=== PATIENT | male | born 1975 | race Hispanic/Latino ===

== ENCOUNTER 2020-07-20 12:35 | Inpatient (IN) | payer OTHER ==
[~2020-07-20] VITALS: Ht 175.3 cm; Wt 99.9 kg
[2020-07-20 12:41] LABS: ABG BASE EXCESS 0.2 mmol/L (-2.0-3.0); ABG HCO3 22.9 mmol/L (21.0-28.0); ABG PCO2 32 mmHg (35-48)
[2020-07-20 12:50] LABS: BASOPHILS % (AUTO) 0.3 % (0.0-5.0); HEMATOCRIT 42.7 % (42-54); LYMPHOCYTES % (AUTO) 25.4 % (21.0-51.0); MEAN CORPUSCULAR HGB CONC 35.6 g/dL (32.0-36.0); MEAN CORPUSCULAR VOLUME 95.5 fL (79-99); MONOCYTES % (AUTO) 9.1 % (3.0-13.0); NEUTROPHILS % (AUTO) 64.9 % (40.0-77.0); PLATELET COUNT (AUTO) 234 K/uL (130-400); RED BLOOD CELL COUNT(AUTO) 4.47 MIL/uL (4.50-6.20); RED CELL DISTRIBUTION WIDTH 11.9 % (11.0-15.5); WHITE BLOOD COUNT (AUTO) 7.2 K/uL (4.8-10.8)
[2020-07-20 13:00] LABS: CREATININE 1.2 mg/dL (0.5-1.5); POTASSIUM 3.8 mmol/L (3.5-5.1)
[2020-07-20 13:09] LABS: ALBUMIN 2.9 g/dL (3.5-5.0); BILIRUBIN,TOTAL 0.8 mg/dL (0.2-1.0); TOTAL PROTEIN, SERUM 7.7 g/dL (6.0-8.3)
[2020-07-20] MEDS ORDERED: CEFTRIAXONE SODIUM 2 GM VIAL ONE (13:11)
[2020-07-20] MEDS ORDERED: DEXAMETHASONE SOD PHOSPHATE 10MG/ML 1ML VIAL ONE (13:11)
[2020-07-20] MEDS ORDERED: ACETAMINOPHEN EXTRA STRENGTH 500 MG TABLET ONE (13:28)
[2020-07-20] MEDS ORDERED: THIAMINE HCL 100 MG/ML 2ML VIAL IVP SCH (17:15)
[2020-07-20] MEDS ORDERED: ERGOCALCIFEROL (VITAMIN D2) 50,000 UNIT CAPSULE PO ONE (17:15)
[2020-07-20] MEDS ORDERED: LORAZEPAM 2 MG/ML 1 ML VIAL IVP PRN (17:15)
[2020-07-20] MEDS ORDERED: PHARMACY COMMUNICATION MISC PRN (17:15)
[2020-07-20] MEDS ORDERED: Vitamin B Complex/Vit C/Folic Acid PO SCH (17:15)
[2020-07-20] MEDS ORDERED: CHLORDIAZEPOXIDE HCL 25 MG CAP PO PRN (17:15)
[2020-07-20] MEDS ORDERED: COMPOUND IV MISC 1 EACH IVSOLN MISC PRN (17:45)
[2020-07-20 17:47] LABS: ALCOHOL, BLOOD < 3 mg/dL (0-10); CREATINE KINASE, TOTAL 38 U/L (21-232)
[2020-07-20] MEDS: LEVETIRACETAM 500 MG in SODIUM CHLORIDE 0.9% 100 ML IV SCH (19:00)
[2020-07-20] MEDS ORDERED: Vitamin B Complex/Vit C/Folic Acid ONE (19:08)
[2020-07-20] MEDS ORDERED: ERGOCALCIFEROL (VITAMIN D2) 50,000 UNIT CAPSULE ONE (19:08)
[2020-07-20] MEDS ORDERED: DOXYCYCLINE HYCLATE 100 MG TABLET PO ONE (19:08)
[2020-07-20] MEDS ORDERED: THIAMINE HCL 100 MG/ML 2ML VIAL ONE (19:09)
[2020-07-20] MEDS ORDERED: ENOXAPARIN SODIUM 40 MG/0.4 ML SYRINGE SQ ONE (19:09)
[2020-07-20 19:28] LABS: HEMOGLOBIN A1C 6.5 % (4.0-6.0)
[2020-07-20] MEDS ORDERED: LEVETIRACETAM 500 MG/5 ML SD VIAL IV ONE (19:31)
[2020-07-20] MEDS ORDERED: SODIUM CHLORIDE 0.9% 100 ML IV ONE (19:33)
[2020-07-20] MEDS: ENOXAPARIN SODIUM 40 MG/0.4 ML SYRINGE SQ SCH (21:00)
[2020-07-20] MEDS: INSULIN HUMULIN R 100 UNIT/ML 3ML SQ SCH (21:00)
[2020-07-20] MEDS: DOXYCYCLINE HYCLATE 100 MG TABLET PO SCH (21:00)
[2020-07-21 03:37] LABS: HEMATOCRIT 40.3 % (42-54); LYMPHOCYTES % (AUTO) 7.3 % (21.0-51.0); MEAN CORPUSCULAR HEMOGLOBIN 33.7 pg (27.0-33.0); MEAN CORPUSCULAR HGB CONC 34.5 g/dL (32.0-36.0); MEAN CORPUSCULAR VOLUME 97.6 fL (79-99); MONOCYTES % (AUTO) 5.4 % (3.0-13.0); NEUTROPHILS % (AUTO) 86.8 % (40.0-77.0); PLATELET COUNT (AUTO) 233 K/uL (130-400); RED BLOOD CELL COUNT(AUTO) 4.13 MIL/uL (4.50-6.20); WHITE BLOOD COUNT (AUTO) 8.7 K/uL (4.8-10.8)
[2020-07-21 03:54] LABS: ALBUMIN 2.7 g/dL (3.5-5.0); BILIRUBIN,TOTAL 0.4 mg/dL (0.2-1.0); CRP QUANTITATIVE 152.1 mg/L (0.00-9.0); POTASSIUM 3.7 mmol/L (3.5-5.1); TOTAL PROTEIN, SERUM 7.4 g/dL (6.0-8.3)
[2020-07-21] MEDS: LEVETIRACETAM 500 MG in SODIUM CHLORIDE 0.9% 100 ML IV SCH ×2 (07:00→21:40)
[2020-07-21] MEDS: INSULIN HUMULIN R 100 UNIT/ML 3ML SQ SCH ×4 (07:30→21:00)
[2020-07-21] MEDS ORDERED: SODIUM CHLORIDE 0.9% 100 ML IV ONE ×3 (07:43→09:10)
[2020-07-21] MEDS: THIAMINE HCL 100 MG/ML 2ML VIAL IVP SCH (09:00)
[2020-07-21] MEDS: CEFTRIAXONE SODIUM 1 GM IVP SCH ×2 (09:00→22:01)
[2020-07-21] MEDS: ZINC SULFATE 220 CAPSULE PO SCH (09:00)
[2020-07-21] MEDS: ASCORBIC ACID 500 MG TAB PO SCH (09:00)
[2020-07-21] MEDS: ENOXAPARIN SODIUM 40 MG/0.4 ML SYRINGE SQ SCH ×2 (09:00→22:02)
[2020-07-21] MEDS: DOXYCYCLINE HYCLATE 100 MG TABLET PO SCH ×2 (09:00→22:01)
[2020-07-21] MEDS: Vitamin B Complex/Vit C/Folic Acid PO SCH (09:00)
[2020-07-21] MEDS: DEXAMETHASONE SOD PHOSPHATE 4 MG/ML 1ML VIAL IVP SCH (09:00)
[2020-07-21] MEDS ORDERED: LEVETIRACETAM 500 MG/5 ML SD VIAL IV ONE (09:05)
[2020-07-21] MEDS ORDERED: ACETAMINOPHEN 325 MG TAB ONE (09:38)
[2020-07-21] MEDS ORDERED: GADODIAMIDE 10 MMOL/20 ML VIAL IV ONE (09:50)
[2020-07-21] MEDS ORDERED: ACETAMINOPHEN 325 MG TAB PO PRN (11:45)
[2020-07-21] MEDS ORDERED: Vitamin B Complex/Vit C/Folic Acid ONE (14:44)
[2020-07-21 16:30] VITALS: BP 130/92
[2020-07-21] MEDS ORDERED: METO25 PO (17:50)
[2020-07-21] MEDS ORDERED: LOSA100T58 PO (17:50)
[2020-07-21 19:33] VITALS: BP 130/59
[2020-07-21] MEDS: ACETAMINOPHEN 325 MG TAB PO PRN (23:18)
[2020-07-21 23:19] VITALS: BP 143/82
[2020-07-22 04:08] VITALS: BP 128/86
[2020-07-22 04:19] LABS: BASOPHILS % (AUTO) 0.1 % (0.0-5.0); HEMATOCRIT 39.7 % (42-54); LYMPHOCYTES % (AUTO) 9.1 % (21.0-51.0); MEAN CORPUSCULAR HEMOGLOBIN 33.3 pg (27.0-33.0); MEAN CORPUSCULAR HGB CONC 34.5 g/dL (32.0-36.0); MEAN CORPUSCULAR VOLUME 96.6 fL (79-99); MONOCYTES % (AUTO) 6.7 % (3.0-13.0); NEUTROPHILS % (AUTO) 83.8 % (40.0-77.0); PLATELET COUNT (AUTO) 269 K/uL (130-400); RED BLOOD CELL COUNT(AUTO) 4.11 MIL/uL (4.50-6.20); WHITE BLOOD COUNT (AUTO) 14.7 K/uL (4.8-10.8)
[2020-07-22 04:38] LABS: ALBUMIN 2.5 g/dL (3.5-5.0); BILIRUBIN,TOTAL 0.5 mg/dL (0.2-1.0); POTASSIUM 4.1 mmol/L (3.5-5.1)
[2020-07-22] MEDS ORDERED: PHARMACY COMMUNICATION**REMDESIVIR MISC SCH (05:00)
[2020-07-22 07:00] VITALS: BP 114/69
[2020-07-22] MEDS: INSULIN HUMULIN R 100 UNIT/ML 3ML SQ SCH ×4 (07:03→21:23)
[2020-07-22] MEDS: LEVETIRACETAM 500 MG in SODIUM CHLORIDE 0.9% 100 ML IV SCH ×2 (07:41→18:22)
[2020-07-22] MEDS: THIAMINE HCL 100 MG/ML 2ML VIAL IVP SCH (09:00)
[2020-07-22] MEDS: CEFTRIAXONE SODIUM 1 GM IVP SCH ×2 (09:26→19:59)
[2020-07-22] MEDS: ASCORBIC ACID 500 MG TAB PO SCH (09:26)
[2020-07-22] MEDS: DOXYCYCLINE HYCLATE 100 MG TABLET PO SCH ×2 (09:26→19:59)
[2020-07-22] MEDS: Vitamin B Complex/Vit C/Folic Acid PO SCH (09:26)
[2020-07-22] MEDS: ZINC SULFATE 220 CAPSULE PO SCH (09:26)
[2020-07-22] MEDS: PANTOPRAZOLE 40 MG/VIAL IVP SCH (09:27)
[2020-07-22] MEDS: DEXAMETHASONE SOD PHOSPHATE 4 MG/ML 1ML VIAL IVP SCH (09:27)
[2020-07-22] MEDS: ENOXAPARIN SODIUM 40 MG/0.4 ML SYRINGE SQ SCH ×2 (09:27→20:00)
[2020-07-22 11:00] VITALS: BP 132/75
[2020-07-22 16:00] VITALS: BP 115/64
[2020-07-22 18:23] LABS: APPEARANCE,URINE Clear (CLEAR); BILIRUBIN,URINE Negative (NEGATIVE); COLOR,URINE Yellow (YELLOW); GLUCOSE, URINE (UA) Negative (NEGATIVE); KETONES,URINE Negative (NEGATIVE); LEUKOCYTE ESTERASE ,URINE Negative (NEGATIVE); NITRATE,URINE Negative (NEGATIVE); OCCULT BLOOD,URINE Negative (NEGATIVE); PH,URINE 6.5 (5.0-8.0); PROTEIN,URINE Negative (NEGATIVE); UROBILINOGEN,URINE 0.2 mg/dL (0.2-1.0)
[2020-07-22 18:30] LABS: AMPHET/METH SCREEN,URINE NEGATIVE (NEGATIVE); BARBITURATE SCREEN, URINE NEGATIVE (NEGATIVE); BENZODIAZEPINES SCREEN,URINE NEGATIVE (NEGATIVE); CANNABINOID SCREEN,URINE NEGATIVE (NEGATIVE); COCAINE SCREEN,URINE NEGATIVE (NEGATIVE); OPIATE SCREEN,URINE NEGATIVE (NEGATIVE); PHENCYCLIDINE SCREEN,URINE NEGATIVE (NEGATIVE)
[2020-07-22 19:48] VITALS: BP 112/58
[2020-07-22] MEDS: ACETAMINOPHEN 325 MG TAB PO PRN (20:01)
[2020-07-23] VITALS (7 sets, daily range): BP systolic 104–142; BP diastolic 60–83
[2020-07-23 04:24] LABS: BASOPHILS % (AUTO) 0.1 % (0.0-5.0); EOSINOPHILS % (AUTO) 0.1 % (0.0-8.0); HEMATOCRIT 37.6 % (42-54); LYMPHOCYTES % (AUTO) 16.6 % (21.0-51.0); MEAN CORPUSCULAR HEMOGLOBIN 32.7 pg (27.0-33.0); MEAN CORPUSCULAR VOLUME 96.2 fL (79-99); MONOCYTES % (AUTO) 7.8 % (3.0-13.0); NEUTROPHILS % (AUTO) 75.1 % (40.0-77.0); PLATELET COUNT (AUTO) 271 K/uL (130-400); RED BLOOD CELL COUNT(AUTO) 3.91 MIL/uL (4.50-6.20); RED CELL DISTRIBUTION WIDTH 11.9 % (11.0-15.5); WHITE BLOOD COUNT (AUTO) 8.9 K/uL (4.8-10.8)
[2020-07-23 04:46] LABS: ALBUMIN 2.3 g/dL (3.5-5.0); BILIRUBIN,TOTAL 0.4 mg/dL (0.2-1.0); CREATININE 0.8 mg/dL (0.5-1.5); CRP QUANTITATIVE 128.8 mg/L (0.00-9.0); POTASSIUM 3.7 mmol/L (3.5-5.1); TOTAL PROTEIN, SERUM 6.7 g/dL (6.0-8.3)
[2020-07-23] MEDS: INSULIN HUMULIN R 100 UNIT/ML 3ML SQ SCH ×4 (06:40→19:47)
[2020-07-23] MEDS: LEVETIRACETAM 500 MG in SODIUM CHLORIDE 0.9% 100 ML IV SCH ×2 (06:41→17:23)
[2020-07-23] MEDS: ACETAMINOPHEN 325 MG TAB PO PRN ×3 (06:58→20:54)
[2020-07-23] MEDS ORDERED: THIAMINE HCL 100 MG TABLET ONE (08:04)
[2020-07-23] MEDS: DOXYCYCLINE HYCLATE 100 MG TABLET PO SCH ×2 (08:19→20:40)
[2020-07-23] MEDS: CEFTRIAXONE SODIUM 1 GM IVP SCH ×2 (08:20→20:39)
[2020-07-23] MEDS: PANTOPRAZOLE 40 MG/VIAL IVP SCH (08:21)
[2020-07-23] MEDS: DEXAMETHASONE SOD PHOSPHATE 4 MG/ML 1ML VIAL IVP SCH (08:21)
[2020-07-23] MEDS: ZINC SULFATE 220 CAPSULE PO SCH (08:21)
[2020-07-23] MEDS: ASCORBIC ACID 500 MG TAB PO SCH (08:21)
[2020-07-23] MEDS: ENOXAPARIN SODIUM 40 MG/0.4 ML SYRINGE SQ SCH ×2 (08:23→20:39)
[2020-07-23] MEDS ORDERED: PHARMACY COMMUNICATION MISC SCH (08:45)
[2020-07-23] MEDS ORDERED: REMDESIVIR (EUA) 520 200 MG in SODIUM CHLORIDE 0.9% 250 ML IV ONE (09:00)
[2020-07-23] MEDS ORDERED: COMPOUND IV REFRIGERATED 1 EACH IVSOLN MISC PRN (09:00)
[2020-07-23] MEDS: Vitamin B Complex/Vit C/Folic Acid PO SCH (09:39)
[2020-07-23] MEDS: THIAMINE HCL 100 MG/ML 2ML VIAL IVP SCH (10:50)
[2020-07-23] MEDS: HYDROMORPHONE 1 MG/1 ML AMP IVP PRN ×2 (20:40→22:44)
[2020-07-24] MEDS: HYDROMORPHONE 1 MG/1 ML AMP IVP PRN ×5 (00:38→05:37)
[2020-07-24 03:59] VITALS: BP 130/81
[2020-07-24 04:40] LABS: ALBUMIN 2.5 g/dL (3.5-5.0); BILIRUBIN,DIRECT 0.2 mg/dL (0.0-0.3); BILIRUBIN,TOTAL 0.4 mg/dL (0.2-1.0); CREATININE 0.8 mg/dL (0.5-1.5); POTASSIUM 3.9 mmol/L (3.5-5.1); TOTAL PROTEIN, SERUM 6.5 g/dL (6.0-8.3)
[2020-07-24] MEDS: PHARMACY COMMUNICATION MISC SCH (06:00)
[2020-07-24] MEDS: INSULIN HUMULIN R 100 UNIT/ML 3ML SQ SCH ×4 (06:36→20:13)
[2020-07-24 07:00] VITALS: BP 123/88
[2020-07-24] MEDS: ENOXAPARIN SODIUM 40 MG/0.4 ML SYRINGE SQ SCH ×2 (07:57→21:27)
[2020-07-24] MEDS: ASCORBIC ACID 500 MG TAB PO SCH (07:58)
[2020-07-24] MEDS: Vitamin B Complex/Vit C/Folic Acid PO SCH (07:58)
[2020-07-24] MEDS: CEFTRIAXONE SODIUM 1 GM IVP SCH (07:58)
[2020-07-24] MEDS: ZINC SULFATE 220 CAPSULE PO SCH (07:58)
[2020-07-24] MEDS: DOXYCYCLINE HYCLATE 100 MG TABLET PO SCH (07:58)
[2020-07-24] MEDS: DEXAMETHASONE SOD PHOSPHATE 4 MG/ML 1ML VIAL IVP SCH (07:58)
[2020-07-24] MEDS: REMDESIVIR (EUA) 520 100 MG in SODIUM CHLORIDE 0.9% 250 ML IV SCH (07:59)
[2020-07-24] MEDS: THIAMINE HCL 100 MG/ML 2ML VIAL IVP SCH (09:00)
[2020-07-24] MEDS: PANTOPRAZOLE 40 MG/VIAL IVP SCH (09:16)
[2020-07-24 11:00] VITALS: BP 114/62
[2020-07-24 13:00] VITALS: BP 134/93
[2020-07-24 19:50] VITALS: BP 127/90
[2020-07-24] MEDS: LEVETIRACETAM 500 MG TABLET PO SCH (21:26)
[2020-07-24 23:03] VITALS: BP 131/67
[2020-07-25 03:53] LABS: HEMATOCRIT 41.2 % (42-54); MEAN CORPUSCULAR HEMOGLOBIN 33.1 pg (27.0-33.0); MEAN CORPUSCULAR HGB CONC 34.7 g/dL (32.0-36.0); MEAN CORPUSCULAR VOLUME 95.4 fL (79-99); RED BLOOD CELL COUNT(AUTO) 4.32 MIL/uL (4.50-6.20); RED CELL DISTRIBUTION WIDTH 11.6 % (11.0-15.5); WHITE BLOOD COUNT (AUTO) 8.7 K/uL (4.8-10.8)
[2020-07-25 03:58] VITALS: BP 145/91
[2020-07-25 04:20] LABS: CARBON DIOXIDE 27 mmol/L (21-32); CHLORIDE 103 mmol/L (101-111); CREATININE 0.9 mg/dL (0.5-1.5); GLOMERULAR FILTR. RATE CALC 98 mL/min (>60); GLUCOSE,RANDOM 116 mg/dL (70-105); PHOSPHORUS 3.4 mg/dL (2.5-4.9); POTASSIUM 3.5 mmol/L (3.5-5.1); SODIUM SERUM 139 mmol/L (136-145); THYROID STIMULATING HORMONE 0.97 uIU/mL (0.36-3.74); UREA NITROGEN, BLOOD 19 mg/dL (7-18)
[2020-07-25] MEDS: PHARMACY COMMUNICATION MISC SCH (05:16)
[2020-07-25] MEDS: INSULIN HUMULIN R 100 UNIT/ML 3ML SQ SCH ×4 (06:32→21:00)
[2020-07-25 07:00] VITALS: BP 113/75
[2020-07-25] MEDS: Vitamin B Complex/Vit C/Folic Acid PO SCH (09:11)
[2020-07-25] MEDS: LEVETIRACETAM 500 MG TABLET PO SCH ×2 (09:11→20:16)
[2020-07-25] MEDS: DEXAMETHASONE 4 MG TAB PO SCH (09:11)
[2020-07-25] MEDS: ZINC SULFATE 220 CAPSULE PO SCH (09:11)
[2020-07-25] MEDS: ASCORBIC ACID 500 MG TAB PO SCH (09:11)
[2020-07-25] MEDS: ENOXAPARIN SODIUM 40 MG/0.4 ML SYRINGE SQ SCH ×2 (09:12→20:16)
[2020-07-25] MEDS: THIAMINE HCL 100 MG/ML 2ML VIAL IVP SCH (09:30)
[2020-07-25] MEDS: PANTOPRAZOLE 40 MG/VIAL IVP SCH (09:30)
[2020-07-25] MEDS: REMDESIVIR (EUA) 520 100 MG in SODIUM CHLORIDE 0.9% 250 ML IV SCH (09:35)
[2020-07-25 11:00] VITALS: BP 121/76
[2020-07-25] MEDS ORDERED: POTASSIUM CHLORIDE 20 MEQ ERTAB PO ONE (14:21)
[2020-07-25] MEDS ORDERED: POTASSIUM CHLORIDE 20 MEQ ERTAB PO SCH (15:20)
[2020-07-25 16:00] VITALS: BP 110/59
[2020-07-25 20:00] VITALS: BP 127/78
[2020-07-26] VITALS: BP 135/89
[2020-07-26 04:00] VITALS: BP 111/69
[2020-07-26] MEDS: INSULIN HUMULIN R 100 UNIT/ML 3ML SQ SCH ×2 (06:05→11:30)
[2020-07-26 07:00] VITALS: BP 100/70
[2020-07-26] MEDS: LEVETIRACETAM 500 MG TABLET PO SCH (08:15)
[2020-07-26] MEDS: PANTOPRAZOLE 40 MG/VIAL IVP SCH (08:15)
[2020-07-26] MEDS: Vitamin B Complex/Vit C/Folic Acid PO SCH (08:15)
[2020-07-26] MEDS: ASCORBIC ACID 500 MG TAB PO SCH (08:15)
[2020-07-26] MEDS: THIAMINE HCL 100 MG/ML 2ML VIAL IVP SCH (08:15)
[2020-07-26] MEDS: ENOXAPARIN SODIUM 40 MG/0.4 ML SYRINGE SQ SCH (08:16)
[2020-07-26] MEDS: DEXAMETHASONE 4 MG TAB PO SCH (08:16)
[2020-07-26] MEDS: ZINC SULFATE 220 CAPSULE PO SCH (08:24)
[2020-07-26 10:02] LABS: ALBUMIN 2.6 g/dL (3.5-5.0); BILIRUBIN,DIRECT 0.1 mg/dL (0.0-0.3); BILIRUBIN,TOTAL 0.5 mg/dL (0.2-1.0); TOTAL PROTEIN, SERUM 7.1 g/dL (6.0-8.3)
[2020-07-26 11:00] VITALS: BP 107/73
[2020-07-26] MEDS ORDERED: ENOXAPARIN SODIUM 40 MG/0.4 ML SYRINGE SQ SCH (11:45)
[2020-07-26] MEDS ORDERED: ASCO500T20 PO (13:05)
[2020-07-26] MEDS ORDERED: ZINC220C6 PO (13:05)
[2020-07-26] MEDS ORDERED: APIX2.5T PO (13:05)
[2020-07-26] MEDS ORDERED: DEXA6TAB PO (13:05)
[2020-07-26] MEDS ORDERED: LEVE-43 PO (13:05)
[2020-07-26] MEDS ORDERED: THIA500T3 PO (13:05)
== END 2020-07-26 14:45 | disposition home or self-care (01) | DRG 177 ==
LOC: EDH 12:35 → EDHIP 16:23 → 2AH 07-21 17:31
PROVIDERS: ADMIT Internal Medicine; ATTEND Internal Medicine
PROC: 5A0935A Assistance with Respiratory Ventilation, Less than 24 Consecutive Hours, High Flow/Velocity Cannula (ICD-10-PCS; 2020-07-20)
PROC: XW033E5 Introduction of Remdesivir Anti-infective into Peripheral Vein, Percutaneous Approach, New Technology Group 5 (ICD-10-PCS; principal; 2020-07-23)
PROC: XW13325 Transfusion of Convalescent Plasma (Nonautologous) into Peripheral Vein, Percutaneous Approach, New Technology Group 5 (ICD-10-PCS; 2020-07-23)
DX: U07.1 COVID-19 (principal); J80 Acute respiratory distress syndrome; J12.89 Other viral pneumonia; E11.9 Type 2 diabetes mellitus without complications; R32 Unspecified urinary incontinence; F17.210 Nicotine dependence, cigarettes, uncomplicated; E87.6 Hypokalemia; G40.909 Epilepsy, unspecified, not intractable, without status epilepticus; I10 Essential (primary) hypertension; E66.9 Obesity, unspecified; G31.9 Degenerative disease of nervous system, unspecified; R55 Syncope and collapse; R00.1 Bradycardia, unspecified; R74.01 Elevation of levels of liver transaminase levels; Z82.0 Family history of epilepsy and other diseases of the nervous system; Z79.899 Other long term (current) drug therapy; Z68.32 Body mass index [BMI] 32.0-32.9, adult
CPT/HCPCS: 36415; 36430; 36600; 70450; 70553; 71045; 80048; 80053; 80076; 80305; 81003; 82435; 82550; 82728; 82803; 82947; 82948; 83036; 83605; 83615; 83735; 84100; 84132; 84145; 84295; 84443; 84484; 85018; 85025; 85027; 85378; 85651; 86140; 86850; 86900; 86901; 86927; 87040; 87088; 87426; 87804; 93005; A9579; C9113; G0378; J0696; J1100; J1170; J1650; J1953; J3411; J7050; J8540; U0003